=== PATIENT | female | born 1955 | race Caucasian/White ===

== ENCOUNTER 2024-08-06 15:41 | Observation (INO) | payer MEDICARE, OTHER, SELFPAY ==
[2024-08-06] VITALS (11 sets, daily range): BP systolic 124–166; BP diastolic 65–95; BMI 24.5
--- NOTE | 2024-08-06 10:30 | ED.CVA ---
History of Present Illness
General
Chief Complaint: CVA/TIA Symptoms
Time Seen by Provider: 08/06/24 09:52
Onset of Stroke Symptoms
Onset of symptoms known: No
Time pt last seen normal is known: No
History of Present Illness
History of Present Illness:
68-year-old female with history of high cholesterol, asthma, chronic back pain, chronic vascular issues presenting to the emergency department for strokelike symptoms. Patient reports about 3 to 4 days ago she started to have numbness to her left
side of face and left arm. Also notes some increased blurred vision out of the left eye. She went to see an orthopedic doctor today about her chronic back pain who advised that she come to the hospital. Denies any known history of stroke. Denies
any associated weakness. Does report chronic lower back and neck pain denies chest pain or difficulty breathing. Does note chronic pain to the neck and lower back which has been ongoing. Denies abdominal pain or GI symptoms. Denies any recent
fall or trauma. Denies additional acute medical complaints
Phy Exam
Physical Exam
Physical Exam:
General: Well-appearing, no clinical signs of dehydration, nontoxic and in no acute distress
HEENT: protecting airway
Neck: appears supple, no tenderness to the midline cervical spine
CV: Normal heart rate, regular rhythm
Resp: No accessory muscle use, no increased work of breathing, lungs clear to auscultation bilaterally
Abd: No distention
Extremities: No deformities, no swelling
Neuro: alert, no focal neurologic deficit
: deferred
Rectal: deferred
Psych: Normal affect
Skin: Intact
Scores
NIH Stroke Score
Level of Consciousness: 0 - Alert
LOC Questions: 0-Answers both correctly
LOC Commands: 0-Performs both correctly
Best Horizontal Gaze: 0-Normal
Visual Cameron: 0=Normal, no visual loss
Facial Palsy: 0=Normal, symmetrical
Motor - Right Arm: 0=No drift 10 seconds
Motor - Left Arm: 0=No drift 10 seconds
Motor - Right Le-No drift 5 seconds
Motor - Left Le-No drift 5 seconds
Limb Ataxia: 0-Absent
Sensation: 0-Normal
Best Language: 0-No aphasia
Dysarthria: 0-Normal
Extinction and Inattention: 0-No abnormality
Total Score:: 0
Course
Orders/Labs/Results
Orders:
Orders
08/06/24 10:16
CT Head & Neck Angio W/wo IV Urgent
Comment:
Reason For Exam: L-face and arm numbness
08/06/24 10:17
Electrocardiogram (*1) Stat
Reason for Study: Other
Other Reason for Exam: neuro symptoms
EKG- Treatment ONCE
08/06/24 10:24
Comprehensive Metabolic Panel Urgent
PTT Urgent
Prothrombin Time Urgent
08/06/24 10:25
Complete Blood Count/With Diff Urgent
08/06/24 13:06
Aspirin Chewable [Low Strength Aspirin] 81 mg PO NOW STA
Clopidogrel Bisulfate [Plavix] 75 mg PO NOW STA
Abnormal Lab Results
08/06/24 08/06/24
10:24 10:25
MCH 31.4 H pg
(27.0-31.0)
Immature Gran % 0.6 H %
(0-0.5)
Glucose 104 H mg/dl
(70-99)
Total Bilirubin 1.6 H mg/dl
(0.2-1.3)
08/06/24 10:25
08/06/24 10:24
Vital Signs
Initial and Last Documented VS:
Initial Vital Signs
Temp Pulse Resp BP Pulse Ox
97.7 F 68 18 166/90 99
08/06/24 09:23 08/06/24 09:23 08/06/24 09:23 08/06/24 09:23 08/06/24 09:23
Last Documented Vital Signs
Temp Pulse Resp BP Pulse Ox
97.7 F 53 15 131/77 99
08/06/24 09:23 08/06/24 13:00 08/06/24 12:45 08/06/24 13:00 08/06/24 13:00
MDM/Problems Addressed
MDM/Problems Addressed:
68-year-old female with history of asthma, vascular issues, hyperlipidemia presenting for strokelike symptoms for the past 3 to 4 days. Vital signs on arrival are significant for mild hypertension.
On exam patient is resting comfortably, no acute distress or discomfort. She is afebrile, nontoxic. Symptoms described are concerning for neurologic process, TIA versus CVA. Patient reports that she is still having the symptoms, however on exam,
no weakness or sensory deficits. Patient's peripheral cameron are intact. NIH stroke scale of 0. No indication for TNK given duration of symptoms, additionally no acute neurologic findings. Cervical radiculopathy is a consideration, however less
likely in the setting of visual symptoms. For this reason we will obtain laboratory analysis and CT brain imaging.
13:00 - CT and CT angio without acute process. Discussion with neurology, will see and evaluate. Will administer aspirin and Plavix
13:45 - Neurology recommending admission. Will discuss with hospitalist
*EKG
Interpreted by ED Provider?: Yes
EKG Intrepretation Date: 08/06/24
EKG Intrepretation Time: 10:41
Interpretation: normal
Comparison EKG: no comparison EKG present
Heart Rate: 54
Rate: bradycardiac
Rhythm: sinus
[place]: normal axis
Interval: normal interval
QRS Pattern: normal QRS
Ischemia: no ischemia
*Critical Care Note
Total Time (30-74mins, 75-104mins- exclusive of procedures): Not Applicable
ED Attending Note
-
Portions of this chart may have been created with voice recognition software.� Occasional wrong word or��sound alike� substitutions may have occurred due to the inherent limitations of voice recognition software.
Discharge Plan
Departure
Referrals:
Parish Hodge MD [Family Provider] -
Interventions
Interventions:
*Risk Screen - Suicide Last Done: 08/06/24 09:23
*General Assessment Last Done: 08/06/24 09:23
*Neglect/Abuse Screening Last Done: 08/06/24 09:23
*ED- Fall Risk Assessment Last Done: 08/06/24 09:49
*ED COVID-19 Vaccine History Last Done: 08/06/24 09:23
ED- Pulmonary Assessment Last Done: 08/06/24 09:49
ED- Neurological Assessment Last Done: 08/06/24 10:08
ED- Cardiac Assessment Last Done: 08/06/24 10:07
ED Swallowing Screen Last Done: 08/06/24 10:07
Discharge Date and Time
Print Language: LUX[place]
[2024-08-06 10:48] LABS: ALT (SGPT) 20 U/L (0-35); AST (SGOT) 26 U/L (14-36); Albumin 4.1 g/dl (3.5-5.0); Alkaline Phosphatase 54 U/L (38-126); Blood Urea Nitrogen 14 mg/dl (7-17); Calcium 9.4 mg/dl (8.4-10.2); Carbon Dioxide 29 mmol/L (22-30); Chloride 105 mmol/L (98-107); Glucose 104 mg/dl (70-99); Potassium 4.4 mmol/L (3.5-5.1); Sodium 139 mmol/L (135-145); Total Bilirubin 1.6 mg/dl (0.2-1.3); Total Protein 6.9 g/dl (6.3-8.2); eGFR > 60.00
[2024-08-06 10:49] LABS: % Eosinophils 3.4 % (0-6); % Immature Granulocytes 0.6 % (0-0.5); % Lymphocytes 25.6 % (20.5-51.1); % Monocytes 8.5 % (1.7-9.3); % Neutrophils 59.9 % (42.2-75.2); Absolute Basophils 0.1 10^3/uL (0-0.2); Absolute Eosinophils 0.2 10^3/uL (0-0.7); Absolute Lymphocytes 1.3 10^3/uL (1.2-3.4); Absolute Monocytes 0.4 10^3/uL (0.1-0.6); Hematocrit 40.3 % (37.0-47.0); Hemoglobin 13.4 g/dL (12.0-16.0); Mean Corp Hgb Conc. 33.3 g/dL (33.0-37.0); Mean Corpuscular Hgb 31.4 pg (27.0-31.0); Mean Corpuscular Volume 94.4 fL (81.0-99.0); Mean Platelet Volume 9.3 fL (7.4-10.4); Nucleated Red Blood Cells % 0 %; Platelet Count 251 10^3/uL (130-400); Red Blood Cell Count 4.27 10^6/uL (4.20-5.40); Red Cell Dist. Width 13.2 % (11.5-14.5)
[2024-08-06 10:52] LABS: INR 0.97; PT 13.3 Sec (11.4-14.6)
[2024-08-06 10:53] LABS: APTT 26.6 Sec (23.4-35.0)
--- NOTE | 2024-08-06 13:01 | CON.NEURO ---
Consultation
Order
Date of Consultation: 08/06/24
Requesting Provider: Bria Mathew DO
Reason for Consult: Numbness
Neurology Consultation Note.
HPI: This is a 68-year-old RH woman who presented to [facility] on 08/06/2024 with sensory symptoms. According to the patient she developed an acute right face and arm paresthesias with associated retro-orbital left eye pain and
blurred vision on 08/03/2024. No reports of associated headache, motor deficits, vertigo, photo or phonophobia, nausea, change in speech or language. The patient has history of migraine with aura. She also has history of chronic lower back pain
with left L5 radiculopathy that she was seen by Ortho prior to ER presentation.
The patient has a history of back problems and has been taking tizanidine, a muscle relaxer, which she has recently tapered from 4 mg to 2 mg. She notes an increase in blood pressure and cholesterol levels since starting this medication.
Ms. Rowe states that she has a history of atrial fibrillation and supraventricular tachycardia.The patient takes 81 mg of aspirin daily.
ER VS: 166/90, 68�52, afebrile.
Labs: Glucose�104, bili 1.6, normal sodium, creatinine,
CT head wo contrast�no acute abnormalities
CTA head/neck�no hemodynamically significant stenosis
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
PSH: CHELY/BSO, adenoidectomy, inguinal hernia repair, tonsillectomy, laparoscopic cholecystectomy
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
FH: Mother from stroke in her 80s
All: Doxycycline, montelukast, steroid
ROS: Constitutional: Negative. Negative for chills, fever and unexpected weight change.
HENT: Negative for ear pain, hearing loss, tinnitus and trouble swallowing.
Eyes: Positive for blurred vision on the left
Respiratory: Negative for cough, choking and shortness of breath.
Cardiovascular: Negative for chest pain, palpitations and leg swelling.
Gastrointestinal: Negative for abdominal pain and vomiting.
Endocrine: Negative. Negative for cold intolerance.
Genitourinary: Positive for chronic urinary incontinence
Musculoskeletal: Positive for chronic lower back pain
Skin: Negative for rash.
Allergic/Immunologic: Negative. Negative for immunocompromised state.
Neurological: Positive for left face and arm paresthesias
Psychiatric/Behavioral: Negative for behavioral problems, confusion and hallucinations.
General: Well developed. In no acute distress.
Cardio: Regular rate and rhythm without murmur. Extremities are without cyanosis or edema.
Neuro:
Mental Status: Alert, oriented to person, place, and date. Tangential. Normal attention and recall. Good fund of knowledge. Follows complex requests across the midline. Comprehension, naming, and repetition intact. Immediate 3/3.
Cranial Nerves: Pupils are equally round and reactive to light. EOMs full. Visual cameron full to confrontation. No ptosis. No nystagmus. V1-V3 intact to light touch and pinprick bilaterally, symmetric. Face symmetric. Normal hearing AU. The
palate elevated well. SCMs and traps 5/5. Tongue midline. No dysarthria.
Motor: Normal bulk and tone. No pronator or arm drift. Strength 5/5 throughout. No clonus.
Reflexes: 2+ throughout the upper extremities and 3+ knees. 2/2 in AJs. Plantar responses flexor bilaterally. Negative Rae's bilaterally
Sensory: Normal vibration at the ankles
Coordination: No dysmetria or tremor.
Gait: deferred
Assessment and Plan:
I. Probable migraine with aura, rule out thalamic infarct
II. HTN, history of A-fib
III. Chronic left L5 radiculopathy
-Continue Telemetry monitoring
-Continue aspirin 81 mg once a day
-Brain MRI without raimundo
-Further workup will depend on brain MRI results
-DVT prophylaxis.
-Case was discussed with patient's present at bedside.
I personally reviewed all radiology and labs along with past medical records pertinent to current medical problems. Total time spent in patient care is 60 minutes.
Thank you for allowing us to participate in the care of this patient. We will continue to follow. Please do not hesitate to contact us with any questions or concerns.
Subjective/Objective
Subjective Data
Date of Service: August 06, 2024
Objective Data
Vital Signs
Temp Pulse Resp BP Pulse Ox
36.5 C 52 14 130/72 100
08/06/24 09:23 08/06/24 12:00 08/06/24 11:45 08/06/24 12:00 08/06/24 12:00
Lab Results
08/06/24 10:25
08/06/24 10:24
PT 13.3 Sec (11.4-14.6) 08/06/24 10:24
INR 0.97 08/06/24 10:24
APTT 26.6 Sec (23.4-35.0) 08/06/24 10:24
Sodium 139 mmol/L (135-145) 08/06/24 10:24
Potassium 4.4 mmol/L (3.5-5.1) 08/06/24 10:24
BUN 14 mg/dl (7-17) 08/06/24 10:24
Glucose 104 mg/dl (70-99) H 08/06/24 10:24
Calcium 9.4 mg/dl (8.4-10.2) 08/06/24 10:24
Patient Allergies
doxycycline Allergy (Verified 08/06/24 09:35)
Itching
montelukast [From Singulair] Allergy (Verified 08/06/24 09:35)
Unknown
steroids Allergy (Uncoded 08/06/24 09:35)
Unknown
[2024-08-06] MEDS: LOW STRENGTH ASPIRIN 81 MG PO (13:13)
[2024-08-06] MEDS: PLAVIX 75 MG PO (13:14)
--- NOTE | 2024-08-06 13:58 | HPS.HSE ---
Family Physician
-
Family Physician: Parish Hodge
Chief Complaint
-
Left-sided facial numbness, left eye blurry vision 3 to 4 days
History of Present Illness
68-year-old female complaining of 3 to 4 days of left-sided face and left arm numbness that feels like a tourniquet on the left side of her face and entire left arm along with increased blurred vision from her left eye, but can still read fine print
with her glasses on. She reports history of migraine auras but no headache. Prior to coming to the ER for evaluation she went to her orthopedic doctor today in regards to her chronic back pain he advised her to come for evaluation. Patient
reports chronic lower back and neck pain for which has been ongoing and she follows with orthopedics and has been on Zanaflex since 07/18/2024. She states initially she was on Zanaflex 4 times a day for 2 weeks and the pain in her neck and back were
gone but she wanted to feel some of the pain so she decreased it to 3 times a day starting this past week then to twice a day 2 days ago. She reports reading the pamphlet that stated it can cause numbness but she plans on continuing to take the
Zanaflex. She had CT head and CTA that was normal in the ER. She was evaluated by neurology who recommended admission and starting aspirin and Plavix, brain MRI. She denies headache, fever, chills, chest pain, palpitations, cough, shortness of
breath, abdominal pain, nausea, vomiting, diarrhea, urinary symptoms she has past medical history of HLD, asthma, chronic neck and back pain, A-fib(patient told by cardiology does not have this), SVT, abdominal aortic aneurysm, pulmonary nodule,
hiatal hernia, CKD, stress incontinence urine hypothyroidism, glaucoma at age 39 had laser treatment both eyes, anemia, rheumatoid arthritis, MAO-A gene, chronic Bekah-Amin, scoliosis, left renal cyst, vitiligo, lupus, popliteal aneurysm
Medical History
Past Medical History
Past Medical History: Reports Other
Additional Past Medical History:
HLD
rheumatoid arthritis
Reported lupus
asthma
chronic neck and back pain
Hypothyroidism
CKD reported per patient
A-fib
SVT
abdominal aortic aneurysm
Pulmonary nodule
hiatal hernia
Urinary stress incontinence
Glaucoma
anemia
MAO-A gene
chronic Bekah-Amin
scoliosis
left renal cyst
vitiligo
popliteal aneurysm
Past Surgical History: Reports Other
Additional Past Surgical History:
Umbilical hernia repair age 18 months
Tonsillectomy adenoidectomy age 4
Abdominal surgery with oophorectomy age 13
Appendectomy age 13
Abdominal cyst removal
D&C
Scar tissue removal from abdomen
Hysterectomy
Cholecystectomy
Social History
Tobacco: Non-smoker
Alcohol: Daily (8 ounces of wine Saturday through , Saturday and Saturday 3 ounces of whiskey then 4 ounces of wine with dinner)
Drug: None
Personal:
Living: With Family ()
Employment: Retired
Family History
Family History: Other (No family history of stroke)
Allergies / Home Medications
Allergies reflects when Allergies were last updated in [facility].
Home Medications with original date entered in [facility]
Allergy/Medication List:
Allergies
Allergy/AdvReac Type Severity Reaction Status Date / Time
doxycycline Allergy Itching Verified 08/06/24 09:35
montelukast [From Singulair] Allergy Unknown Verified 08/06/24 09:35
steroids Allergy Unknown Uncoded 08/06/24 09:35
Home Medications
albuterol sulfate 90 mcg/actuation aerosol inhaler 2 puff inhalation 6XD PRN sob,wheezing 08/06/24
aspirin 81 mg tablet,delayed release 81 mg PO DAILY 08/06/24
cholecalciferol (vitamin D3) 25 mcg (1,000 unit) tablet (Vitamin D3) 25 mcg PO DAILY 08/06/24
ibuprofen 200 mg tablet 400 mg PO HS 08/06/24
levothyroxine 112 mcg tablet (Synthroid) 56 mcg PO WE 08/06/24
levothyroxine 112 mcg tablet (Synthroid) 112 mcg PO SUMOTUTHFRSA 08/06/24
lorazepam 0.5 mg tablet 0.5 mg PO Q6HPRN PRN anxiety 08/06/24
lorazepam 0.5 mg tablet 1 mg PO HS PRN sleep 08/06/24
magnesium oxide 400 mg PO DAILY 08/06/24
pantoprazole 40 mg tablet,delayed release 40 mg PO DAILY 08/06/24
vit no.95-ferrous fumarate 28 mg-folic acid 800 mcg tablet () 2 tab PO DAILY 08/06/24
tizanidine 2 mg tablet 2 mg PO DAILY 08/06/24
valacyclovir 1 gram tablet 2,000 mg PO [id number] PRN cold sores 08/06/24
Review of Systems
-
History Source: Patient and Family (Patient's )
A 12 point ROS was completed and negative except as noted: Yes
Constitutional: Denies Fever, Fatigue or Chills
EENT: Reports Other (Left facial numbness, left I reported blurred vision); Denies Sore Throat or Runny Nose
Respiratory: Denies Cough, Hemoptysis or Trouble Breathing
Cardiac: Denies Chest Pain, Diaphoresis, Palpitations or Syncope
Abdomen/GI: Denies Abdominal Pain, Nausea, Vomiting, Diarrhea, Constipated, Bloody Stools or Black Stools
: Denies Dysuria, Frequency, Flank Pain, Incontinence or Difficulty Voiding
Musculoskeletal: Reports No Symptoms; Denies Joint Pain or Muscle Stiffness
Skin: Denies Itching or Rash
Neurological: Denies Dizzy, Headache or Weakness
Endocrine: Reports No Symptoms
Hematologic/Lymphatic: Reports No Symptoms
Psych: Reports Calm
Physical Exam
Vital Signs
Vital Signs
Temp Pulse Resp BP Pulse Ox
97.7 F 53 17 131/77 99
08/06/24 09:23 08/06/24 13:45 08/06/24 13:45 08/06/24 13:00 08/06/24 13:45
Physical Exam
General: Comfortable and Conversant; No Fever or Chills
HEENT: NormoCephalic, Anicteric, Moist mucous membranes, PERRLA (EOMs intact no nystagmus), [place] Conjunctivae, No Ptosis and Other (No sensation difference between left and right side of face to touch)
Respiratory: Clear; No Wheezes, Rales or Rhonchi
Cardiac: S1/S2 and Bradycardia (Sinus); No Murmur, Rub, Gallop or Peripheral Edema
Breast: Deferred by me
GI: Soft, Non Tender, Non Distended, Normal Bowel Sounds and No Hepatosplenomegaly
Genito-urinary: Deferred by me
Musculoskeletal: No Clubbing, No Cyanosis, No Edema and Other (No joint swelling no herbedens or Cali nodes, no butterfly rash to face)
Skin: Warm and Dry; No Rash or Jaundice
Neuro: AO x 3, No Motor Deficits, Nonfocal/grossly intact, Cranial Nerves Intact, No Sensory Deficits and DTR's Intact & Symmetrical; No Slurred Speech, Facial Droop, Tremors or Sedated
Psych: Calm
Laboratory Results
-
08/06/24 10:25
08/06/24 10:24
Laboratory Results
PT 13.3 Sec (11.4-14.6) 08/06/24 10:24
INR 0.97 08/06/24 10:24
APTT 26.6 Sec (23.4-35.0) 08/06/24 10:24
Total Bilirubin 1.6 mg/dl (0.2-1.3) H 08/06/24 10:24
AST 26 U/L (14-36) 08/06/24 10:24
ALT 20 U/L (0-35) 08/06/24 10:24
Alkaline Phosphatase 54 U/L (38-126) 08/06/24 10:24
Impression/Plan
-
Impression/plan:
Observation telemetry
#Left facial, arm numbness, left eye blurred vision concern for TIA/CVA Probable migraine with aura rule out thalamic infarct
History of migraine auras (moving blurry lightning bolts) but never gets actual headache
#Brain MRI without gadolinium
--CT head/CTA normal
-Consult neurology was seen at bedside
-Check MRI brain without gadolinium
-Aspirin 81 mg now and daily
-Plavix 75 mg now and daily
-Check lipid profile, HgbA1c, B12 level
PT/OT/case management consult
EKG sinus bradycardia 54 bpm, QTc 419 MS otherwise normal
# Hypothyroidism
-Continue levothyroxine 112 mcg p.o. daily and 56 mcg p.o. Wednesdays only
#Anxiety
-Continue lorazepam 1 mg at at bedtime as needed and 0.5 mg every 6 hours as needed
#Daily alcohol use
Drinks 1 glass 8 ounce wine Saturday through then 3 ounce whiskey at lunch and 4 ounce red wine at night Saturday
-Check B12 level
#GERD
#Hiatal hernia
-Continue Protonix 40 mg daily
#Reported lupus not formally diagnosed
#Chronic neck and back pain
-Follows with orthopedics
-Continue continue Zanaflex twice daily
#HLD
-Check lipid profile
#CKD-reported per patient however not appreciated on labs
stress incontinence urine
Creatinine 0.8, GFR> 60
#Asthma
-Continue albuterol inhaler as needed
#A-fib per patient reported states has followed with cardiology who has told her she does not have A-fib however she believes she does via her wrist monitor and she treats it with cold showers
#SVT Hx-since teenager patient treats also with cold showers
#Abdominal aortic aneurysm
Other PMH:
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
Pulmonary nodule
Glaucoma at age 39 status post laser treatment completely resolved
Anemia
Rheumatoid arthritis-not formally diagnosed but believes she has
MAO-A gene
Chronic Bekah-Amin
Scoliosis
Left renal cyst
Vitiligo
popliteal aneurysm
DVT prophylaxis
SCDs
Full code
--- NOTE | 2024-08-06 14:49 | W.PN.UPDATE ---
Update Note
Progress Note Update
This note serves as an addendum to the H&P by windows systems engineer MEGAN Bianca WHITFIELD
HPI:
68F HX Has chronic back and neck pain, no prior visit to seen at ER :
- sent here for Lt sided paraesthesia by OP Ortho
- reports 3-4 days of L-face and L-arm numbness with L-blurred visions
- went to ortho before ER for chronic back and neck pain,
PHX: see below
Vital Signs
Temp Pulse Resp BP Pulse Ox
97.7 F 53 17 131/77 99
08/06/24 09:23 08/06/24 13:45 08/06/24 13:45 08/06/24 13:00 08/06/24 13:45
PE
Gen: not toxic
HEENT: normal speech and language, symmetric face,
Neck: supple. No JVD
Lungs:CTA
Cor: RRR S1 S2
Abdomen: benign abdomen
NURSE MIDWIFE:
Peripheral visual camerno are intact
No neurologic findings on exam, no sensory deficits,
MS:no edema
Psych: fights of thoughts, stable mood, no psychosis may be delusions
Laboratory Tests
08/06/24 08/06/24
10:24 10:25
WBC 5.0
Hgb 13.4
Plt Count 251
INR 0.97
eGFR > 60.00
Glucose 104 H
Total Bilirubin 1.6 H
EKG
SINUS BRADYCARDIA
OTHERWISE NORMAL ECG
NO PREVIOUS ECGS AVAILABLE
CT Head & Neck Angio W/wo IV
CT Brain: No acute intracranial process. Specifically, no evidence of acute hemorrhage.
CTA Head: No significant arterial stenosis. No aneurysm.
CTA Neck: No significant arterial stenosis. There is grade 1 anterolisthesis of C3 on C4 and C6 on C7 with moderate/severe intervertebral disc space narrowing of C4-C5, C5-C6 and C6-C7.
ASSESSMENT & PLAN
Acute Lt sided paraesthesia ( Lt entire Face, entire Lt arm , Lt eye blurred vision)
- NEG CT/CTA H & N
- evaluated by Neuro at ER
- agree with DAPL (ASA/Plavix)
- MRI Brain without
Hypothyroid
- on BLOCK OUT MACHINE OPERATOR LT4
Insomnia/ Anxiety
- on BLOCK OUT MACHINE OPERATOR Lorazepam 1mg HS PRN and 0.5mg q6h PRN
HLD on diet control
DVT Px: SCD
Full code
Obs TLM
[2024-08-06 17:07] LABS: Vitamin B12 477 pg/ml (239-931)
[2024-08-07] MEDS: TYLENOL 650 MG PO (01:17)
[2024-08-07 03:12] VITALS: BP 125/72
[2024-08-07] MEDS: SYNTHROID 112 MCG PO (05:27)
[2024-08-07 07:15] VITALS: BP 115/71
[2024-08-07] MEDS: ASPIR LOW (ENTERIC COATED) 81 MG PO (07:50)
[2024-08-07] MEDS: PLAVIX 75 MG PO (07:50)
[2024-08-07] MEDS: PROTONIX 40 MG PO (07:50)
[2024-08-07 08:28] LABS: % Basophils 1.4 % (0-2); % Eosinophils 3.4 % (0-6); % Immature Granulocytes 0.5 % (0-0.5); % Lymphocytes 22.3 % (20.5-51.1); % Monocytes 7.7 % (1.7-9.3); % Neutrophils 64.7 % (42.2-75.2); Absolute Basophils 0.1 10^3/uL (0-0.2); Absolute Eosinophils 0.2 10^3/uL (0-0.7); Absolute Lymphocytes 1.5 10^3/uL (1.2-3.4); Absolute Monocytes 0.5 10^3/uL (0.1-0.6); Absolute Neutrophils 4.2 10^3/uL (1.4-6.5); Hematocrit 40.8 % (37.0-47.0); Hemoglobin 13.7 g/dL (12.0-16.0); Mean Corp Hgb Conc. 33.6 g/dL (33.0-37.0); Mean Corpuscular Hgb 30.9 pg (27.0-31.0); Mean Corpuscular Volume 92.1 fL (81.0-99.0); Mean Platelet Volume 9.4 fL (7.4-10.4); Nucleated Red Blood Cells % 0 %; Platelet Count 264 10^3/uL (130-400); Red Blood Cell Count 4.43 10^6/uL (4.20-5.40); Red Cell Dist. Width 13.2 % (11.5-14.5); White Blood Cell Count 6.5 10^3/uL (4.8-10.8)
[2024-08-07 09:15] LABS: Blood Urea Nitrogen 12 mg/dl (7-17); Calcium 9.3 mg/dl (8.4-10.2); Carbon Dioxide 27 mmol/L (22-30); Chloride 105 mmol/L (98-107); Estimated Creatinine Clearance 49 ml/min; Glucose 97 mg/dl (70-99); HDL Cholesterol 87 mg/dl; LDL Cholesterol, Calculated 155 mg/dl; Potassium 4.1 mmol/L (3.5-5.1); Sodium 142 mmol/L (135-145); Total Cholesterol 253 mg/dl (50-199); Triglyceride 57 mg/dl (10-149); Very Low Density Lipoprotein 11 mg/dl (0-30); eGFR > 60.00
[2024-08-07 11:15] VITALS: BP 156/84
--- NOTE | 2024-08-07 11:15 | W.PN.NEURO.1 ---
Today's Communication / Plan
-
.
Subjective/Objective
Subjective Data
Date of Service: August 07, 2024
Neurology follow-up note
Ms. Rowe continues to have left-sided sensory symptoms. No reports of headaches.
The patient reports experiencing chronic intermittent visual phenomena described as 'visual snow,' which she characterizes as white smoke. She reportedly was seen by neuro ophthalmology in the past. She has observed this approximately 5 times in
her life, noting that it moves in a clockwise direction and is not always peripheral. The patient denies associated headaches with these episodes.
The patient also describes experiencing migraine auras without subsequent headaches. During these episodes, she experiences visual symptoms jack to a 'split screen' effect, which affects her balance. These episodes can last for a couple of hours but
are not accompanied by pain. The patient denies any speech difficulties during these events.
The patient mentions cognitive concerns. The patient states that she clearly recalls [place] memories, including being 18 months old in a metal crib and having a peanut removed from her navel at that age. She insists on remembering the
detailed of the above hospitalization.
No reports of auditory hallucinations.
Brain MRI wo [facility](08/07/2024) Small 4.8 mm focus of signal abnormality in the cortical paz matter of the superior left parietal lobe(chronic hemorrhagic infarct vs a cerebral venous cavernous malformation or developmental venous anomaly vs amyloid
angiopathy. Minimal white matter leukoaraiosis in the frontal and parietal lobes. Mild diffuse cerebral and cerebellar volume loss.
LDL 155
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
PSH: CHELY/BSO, adenoidectomy, inguinal hernia repair, tonsillectomy, laparoscopic cholecystectomy
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
FH: Mother from stroke in her 80s
All: Doxycycline, montelukast, steroid
ROS: Constitutional: Negative. Negative for chills, fever and unexpected weight change.
HENT: Negative for ear pain, hearing loss, tinnitus and trouble swallowing.
Eyes: Positive for blurred vision on the left
Respiratory: Negative for cough, choking and shortness of breath.
Cardiovascular: Negative for chest pain, palpitations and leg swelling.
Gastrointestinal: Negative for abdominal pain and vomiting.
Endocrine: Negative. Negative for cold intolerance.
Genitourinary: Positive for chronic urinary incontinence
Musculoskeletal: Positive for chronic lower back pain
Skin: Negative for rash.
Allergic/Immunologic: Negative. Negative for immunocompromised state.
Neurological: Positive for left face and arm paresthesias
Psychiatric/Behavioral: Negative for behavioral problems, confusion and hallucinations.
General: Well developed. In no acute distress.
Cardio: Regular rate and rhythm without murmur. Extremities are without cyanosis or edema.
Neuro:
Mental Status: Alert, oriented to person, place, and date. Non-linear thought pattern. Follows complex requests across the midline. Comprehension, naming, and repetition intact.
Cranial Nerves: Pupils are equally round and reactive to light. EOMs full. Visual cameron full to confrontation. No ptosis. No nystagmus. V1-V3 intact to light touch and pinprick bilaterally, symmetric. Face symmetric. Normal hearing AU. The
palate elevated well. SCMs and traps 5/5. Tongue midline. No dysarthria.
Motor: Normal bulk and tone. No pronator or arm drift. Strength 5/5 throughout. No clonus.
Coordination: No tremors myoclonic movement
Gait: deferred
Assessment and Plan:
I. Chronic superior left parietal lobe microhemorrhage
II. HTN, history of A-fib
III. Chronic left L5 radiculopathy
IV. Cavum septum pellucidum et vergae.
V. Delusional disorder ?
-Continue Telemetry monitoring
-Continue aspirin 81 mg once a day
-Please clarify history of A-fib
-Outpatient neuropsychological evaluation
-Psychiatry consult (can be done as outpatient)
-Outpatient neurology follow-up
-Please recall neurology services any questions or concerns
I personally reviewed all radiology and labs along with past medical records pertinent to current medical problems. Total time spent in patient care is 35 minutes.
Thank you for allowing us to participate in the care of this patient. Please do not hesitate to contact us with any questions or concerns.
Objective Data
Vital Signs
Temp Pulse Resp BP Pulse Ox
36.8 C 51 16 115/71 100
08/07/24 07:15 08/07/24 07:15 08/07/24 07:15 08/07/24 07:15 08/07/24 10:44
Lab Results
08/07/24 07:21
08/07/24 07:21
PT 13.3 Sec (11.4-14.6) 08/06/24 10:24
INR 0.97 08/06/24 10:24
APTT 26.6 Sec (23.4-35.0) 08/06/24 10:24
Sodium 142 mmol/L (135-145) 08/07/24 07:21
Potassium 4.1 mmol/L (3.5-5.1) 08/07/24 07:21
BUN 12 mg/dl (7-17) 08/07/24 07:21
Glucose 97 mg/dl (70-99) 08/07/24 07:21
Calcium 9.3 mg/dl (8.4-10.2) 08/07/24 07:21
LDL Cholesterol, Calc 155 mg/dl 08/07/24 07:21
Vitamin B12 477 pg/ml (239-931) 08/06/24 10:24
Patient Allergies
doxycycline Allergy (Verified 08/06/24 09:35)
Itching
montelukast [From Singulair] Allergy (Verified 08/06/24 09:35)
Unknown
steroids Allergy (Uncoded 08/06/24 09:35)
Unknown
Vital Signs and Labs
-
Vital Signs and Labs:
Vital Signs
Temp Pulse Resp BP Pulse Ox
36.8 C 51 16 115/71 100
08/07/24 07:15 08/07/24 07:15 08/07/24 07:15 08/07/24 07:15 08/07/24 10:44
Lab Results
08/07/24 07:21
08/07/24 07:21
PT 13.3 Sec (11.4-14.6) 08/06/24 10:24
INR 0.97 08/06/24 10:24
APTT 26.6 Sec (23.4-35.0) 08/06/24 10:24
Sodium 142 mmol/L (135-145) 08/07/24 07:21
Potassium 4.1 mmol/L (3.5-5.1) 08/07/24 07:21
BUN 12 mg/dl (7-17) 08/07/24 07:21
Glucose 97 mg/dl (70-99) 08/07/24 07:21
Calcium 9.3 mg/dl (8.4-10.2) 08/07/24 07:21
LDL Cholesterol, Calc 155 mg/dl 08/07/24 07:21
Vitamin B12 477 pg/ml (239-931) 08/06/24 10:24
Medications
-
Medications:
Generic Name Dose Route Start Last Admin
Trade Name Freq PRN Reason Stop Dose Admin
Acetaminophen 650 mg 08/06/24 17:11 08/07/24 01:17
Acetaminophen 325 Mg Tablet PO 09/03/24 17:10 650 mg
Q4HPRN PRN Administration
mild pain/LIMA/temp> 100.4F
Albuterol 2 puff 08/06/24 17:11
Albuterol Hfa [90 Mcg/Dose] Inhaler INH
R Q4HPRN PRN
sob,wheezing
Protocol
Aspirin 81 mg 08/07/24 08:00 08/07/24 07:50
Aspirin 81 Mg (Enteric Coated) Tablet PO 09/04/24 07:59 81 mg
DAILY VANDANA Administration
Cholecalciferol 25 mcg 08/07/24 08:00 08/07/24 07:52
Cholecalciferol (Vitamin D3) 25 Mcg Tablet (1,000 Units) PO 09/04/24 07:59 Not Given
DAILY VANDANA
Clopidogrel Bisulfate 75 mg 08/07/24 08:00 08/07/24 07:50
Clopidogrel 75 Mg Tablet PO 09/04/24 07:59 75 mg
DAILY VANDANA Administration
Levothyroxine Sodium 112 mcg 08/07/24 06:00 08/07/24 05:27
Levothyroxine 112 Mcg Tablet PO 09/04/24 05:59 112 mcg
SuMoTuThFrSa@0600 VANDANA Administration
Levothyroxine Sodium 56 mcg 08/12/24 06:00
Levothyroxine 112 Mcg Tablet PO 09/09/24 05:59
WE@0600 VANDANA
Lorazepam 0.5 mg 08/06/24 17:11
Lorazepam 0.5 Mg Tablet PO 09/03/24 17:10
Q6HPRN PRN
anxiety
Lorazepam 1 mg 08/06/24 22:00
Lorazepam 1 Mg Tablet PO 09/03/24 21:59
HSPRN PRN
sleep
Magnesium 84 mg 08/07/24 08:00 08/07/24 07:52
Magnesium Lactate 84 Mg Tablet PO 09/04/24 07:59 Not Given
DAILY VANDANA
Pantoprazole Sodium 40 mg 08/07/24 08:00 08/07/24 07:50
Pantoprazole 40 Mg Delayed Release Tablet PO 09/04/24 07:59 40 mg
DAILY VANDANA Administration
Prenat Multivit/[place]/Iron/Folic Ac 2 tablet 08/07/24 08:00 08/07/24 07:52
Multiple Vitamin/Minerals With Iron Tablet PO 09/04/24 07:59 Not Given
DAILY VANDANA
Sodium Chloride 0 flush 08/06/24 18:00
Sodium Chloride 0.9% (Flush) Syringe IV 09/03/24 17:59
PER PROTOCOL VANDANA
Tizanidine HCl 2 mg 08/07/24 08:00 08/07/24 07:56
Tizanidine 2 Mg Tablet PO 09/04/24 07:59 Not Given
DAILY VANDANA
Home Medications
-
Home Medications
albuterol sulfate 90 mcg/actuation aerosol inhaler 2 puff inhalation R Q6HPRN PRN sob,wheezing 08/06/24
aspirin 81 mg tablet,delayed release 81 mg PO DAILY Blood Clot Prevention/Tx 08/06/24
cholecalciferol (vitamin D3) 25 mcg (1,000 unit) tablet (Vitamin D3) 25 mcg PO DAILY Supplement 08/06/24
ibuprofen 200 mg tablet 400 mg PO BIDPRN PRN mild pain 08/06/24
levothyroxine 112 mcg tablet (Synthroid) 56 mcg PO WE Thyroid 08/06/24
levothyroxine 112 mcg tablet (Synthroid) 112 mcg PO SUMOTUTHFRSA Thyroid 08/06/24
lorazepam 0.5 mg tablet 0.5 mg PO BIDPRN PRN anxiety 08/06/24
lorazepam 0.5 mg tablet 1 mg PO HS Mental Health/Anxiety 08/06/24
magnesium oxide 400 mg PO DAILY Supplement 08/06/24
melatonin 10 mg tablet 10 mg PO HS Sleep 08/06/24
pantoprazole 40 mg tablet,delayed release 40 mg PO DAILY Gastrointestinal Issue 08/06/24
vit no.95-ferrous fumarate 28 mg-folic acid 800 mcg tablet () 1 tab PO DAILY Supplement 08/06/24
tizanidine 2 mg tablet 2 mg PO DAILY Muscle Spasms 08/06/24
valacyclovir 1 gram tablet 2,000 mg PO [id number] PRN cold sores 08/06/24
[2024-08-07 12:02] VITALS: BP 145/91; PULSE 64; O2SAT 95
--- NOTE | 2024-08-07 13:07 | VNURNOTE ---
Home health liaison met with patient and spouse to discuss [facility] services. At this time patient is back to her baseline and does not have a [place] [facility] facility or PT need. Patient and spouse in agreement. Patient aware to continue with physician
follow-up appointments outpatient. manager sql notified that patient does not need [facility] services
--- NOTE | 2024-08-07 13:21 | CM ---
Patient met at bedside with Gen
MURO form explained & signed
IA completed
Lives with in bi-level home, 2 steps to enter, flight to bedroom
PLOF: Independent
Denies DME
Denies HH, has had outpatient PT in past
PT eval no needs
PCP: Parish Hodge
Pharmacy: [facility]
PLAN: Home, no needs
to transport
--- NOTE | 2024-08-07 14:27 | W.PN.HOSP.TC ---
Today's Communication/Plan
-
Assessment / Plan
Assessment / Plan
General: No Apparent Distress, Comfortable and Conversant
HEENT: NormoCephalic, Moist mucous membranes, Atraumatic
Respiratory: Clear and Non Labored Respirations
Cardiac: S1/S2 and Regular Rhythm; No Rub or Gallop
GI: Soft, Non Tender, Non Distended and Normal Bowel Sounds
Musculoskeletal: No Edema, no deformity
: NO Mehta
Neuro: Awake, Alert, AO x 3, no focal motor deficits, resolving paresthesias left face and left upper extremity
Psych: Calm and Intact Judgment/Insight
Ms. 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
extremity numbness without weakness. Labs and vital signs were unremarkable. Her EKG was unremarkable other than mild sinus bradycardia with a heart rate of 54 which she reports is a normal rate for. CT imaging of her head neck showed cervical
degenerative disc disease but no acute intracranial abnormalities. She was admitted for further evaluation and management.
Paresthesia:
-Involving left face and left arm
-CT angiography of head and neck shows degenerative disc disease in her cervical spine but no intracranial or vascular abnormality
-MRI brain pending
-Neurology following, will follow-up after MRI
-For now continuing aspirin and Plavix
Daily alcohol use:
-B12 within normal limits
-Daily thiamine and folate
CODE STATUS: Full code
Anticipated Discharge: Within 24 hours
Subjective/Interval History
-
Date of Service: August 07, 2024
Patient was seen and examined at bedside this morning. Has resolving left facial and left arm paresthesias. Awaiting MRI brain and neurology evaluation. Feeling generally well currently.
Objective Data
-
Labs:
Laboratory Results
08/07/24
07:21
WBC 6.5
Hgb 13.7
Hct 40.8
Plt Count 264
Sodium 142
Potassium 4.1
Chloride 105
Carbon Dioxide 27
BUN 12
Creatinine 0.9
Glucose 97
Calcium 9.3
Vital Signs:
Vital Signs
Temp Pulse Resp BP Pulse Ox
97.5 F 63 16 156/84 100
08/07/24 11:15 08/07/24 11:15 08/07/24 11:15 08/07/24 11:15 08/07/24 11:15
Review of Systems
-
History Source: Patient
All other systems: Reviewed and negative
Neuro: Reports Other (Mild left facial and left arm paresthesia)
Physical Exam
-
General: No Apparent Distress
--- NOTE | 2024-08-07 15:16 | W.DCSUMMARY ---
Discharge Summary
Discharge Data
Date of Admission: 08/06/24
Date of Discharge: 08/07/24
-
Pending Results: No
Hospital Course
Ms. 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
extremity numbness without weakness. Labs and vital signs were unremarkable. Her EKG was unremarkable other than mild sinus bradycardia with a heart rate of 54 which she reports is a normal rate for. CT imaging of her head neck showed cervical
degenerative disc disease but no acute intracranial abnormalities. She was admitted for further evaluation and management.
MRI showed no acute abnormalities, but does show chronic superior left parietal lobe microhemorrhage and minimal white matter leukoaraiosis involving frontal and parietal lobes with mild diffuse cerebral and cerebellar volume loss. Neurology
recommends continuing low-dose aspirin and outpatient neuropsychologic evaluation. No need to continue Plavix. She will also need outpatient neurology and psychiatric follow-up. She will be discharged on daily thiamine and folate considering her
daily alcohol use. She will need ongoing follow-up for her degenerative disc disease. She is follow-up closely with her primary care physician after hospital discharge.
General: No Apparent Distress, Comfortable and Conversant
HEENT: NormoCephalic, Moist mucous membranes, Atraumatic
Respiratory: Clear and Non Labored Respirations
Cardiac: S1/S2 and Regular Rhythm; No Rub or Gallop
GI: Soft, Non Tender, Non Distended and Normal Bowel Sounds
Musculoskeletal: No Edema, no deformity
: NO Mehta
Neuro: Awake, Alert, AO x 3, no focal motor deficits, resolving paresthesias left face and left upper extremity
Psych: Calm and Intact Judgment/Insight
Discharge Plan
-
Patient Disposition: Home (Routine Discharge)
Discharge Diagnosis/Procedures: Left facial and arm paresthesia
Diet: No restrictions
Activity: As tolerated
Activity Restrictions/Additional Instructions:
Ms. 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
extremity numbness without weakness. Labs and vital signs were unremarkable. Her EKG was unremarkable other than mild sinus bradycardia with a heart rate of 54 which she reports is a normal rate for. CT imaging of her head neck showed cervical
degenerative disc disease but no acute intracranial abnormalities. She was admitted for further evaluation and management.
MRI showed no acute abnormalities, but does show chronic superior left parietal lobe microhemorrhage and minimal white matter leukoaraiosis involving frontal and parietal lobes with mild diffuse cerebral and cerebellar volume loss. Neurology
recommends continuing low-dose aspirin and outpatient neuropsychologic evaluation. No need to continue Plavix. She will also need outpatient neurology and psychiatric follow-up. She will be discharged on daily thiamine and folate considering her
daily alcohol use. She will need ongoing follow-up for her degenerative disc disease. She is follow-up closely with her primary care physician after hospital discharge.
Referrals:
Franci Castillo MD [Active] -
Parish Hodge MD [Family Provider] -
Prescriptions:
New
thiamine mononitrate (vit B1) 100 mg Tablet
100 mg PO DAILY Qty: 30 0RF
Continued
levothyroxine [Synthroid] 112 mcg Tablet
112 mcg PO SUMOTUTHFRSA
tizanidine 2 mg Tablet
2 mg PO DAILY
valacyclovir 1 gram Tablet
2,000 mg PO [id number] PRN (Reason: cold sores)
aspirin 81 mg Tablet,Delayed Release (Dr/Ec)
81 mg PO DAILY
lorazepam 0.5 mg Tablet
1 mg PO HS
lorazepam 0.5 mg Tablet
0.5 mg PO BIDPRN PRN (Reason: anxiety)
pantoprazole 40 mg Tablet,Delayed Release (Dr/Ec)
40 mg PO DAILY
ibuprofen 200 mg Tablet
400 mg PO BIDPRN PRN (Reason: mild pain)
albuterol sulfate 90 mcg/actuation Hfa Aerosol Inhaler
2 puff INHALATION R Q6HPRN PRN (Reason: sob,wheezing)
levothyroxine [Synthroid] 112 mcg Tablet
56 mcg PO WE
cholecalciferol (vitamin D3) [Vitamin D3] 25 mcg (1,000 unit) Tablet
25 mcg PO DAILY
PNV cmb#95-ferrous fumarate-FA [] 28 mg iron- 800 mcg Tablet
1 tab PO DAILY
magnesium oxide 400 mg magnesium Tablet
400 mg PO DAILY
melatonin 10 mg Tablet
10 mg PO HS
Discharge Orders:
Discharge Patient (As Directed); Ordered 08/07/24
Ordered By: Saroj Grubbs
Discharge Date and Time
Print Language: MONGOLIAN
[2024-08-07 15:44] VITALS: BP 123/94
== END 2024-08-07 16:11 | disposition home or self-care (01) ==
LOC: 4 EAST ACU 15:41
PROVIDERS: Clinical Nurse Specialist Family Health; ADMITTING PHYSICIAN Internal Medicine; ATTENDING PHYSICIAN Internal Medicine; CONSULT PHYSICIAN Psychiatry & Neurology Neurology; EMERGENCY PHYSICIAN Student in an Organized Health Care Education/Training Program; FAMILY PHYSICIAN Internal Medicine
DX: R20.2 Paresthesia of skin (principal); R20.0 Anesthesia of skin; J45.909 Unspecified asthma, uncomplicated; E78.00 Pure hypercholesterolemia, unspecified; G89.29 Other chronic pain; M54.9 Dorsalgia, unspecified; H53.8 Other visual disturbances; R29.818 Other symptoms and signs involving the nervous system; N18.9 Chronic kidney disease, unspecified; I12.9 Hypertensive chronic kidney disease with stage 1 through stage 4 chronic kidney disease, or unspecified chronic kidney disease; M54.16 Radiculopathy, lumbar region; I48.91 Unspecified atrial fibrillation; E03.9 Hypothyroidism, unspecified; M85.80 Other specified disorders of bone density and structure, unspecified site; G43.109 Migraine with aura, not intractable, without status migrainosus; E55.9 Vitamin D deficiency, unspecified; I71.40 Abdominal aortic aneurysm, without rupture, unspecified; K44.9 Diaphragmatic hernia without obstruction or gangrene; N39.3 Stress incontinence (female) (male); M06.9 Rheumatoid arthritis, unspecified; L80 Vitiligo; D64.9 Anemia, unspecified; N28.1 Cyst of kidney, acquired; M32.9 Systemic lupus erythematosus, unspecified; R91.1 Solitary pulmonary nodule; H40.9 Unspecified glaucoma; F41.9 Anxiety disorder, unspecified; F10.90 Alcohol use, unspecified, uncomplicated; K21.9 Gastro-esophageal reflux disease without esophagitis; G47.00 Insomnia, unspecified; M43.12 Spondylolisthesis, cervical region; R00.1 Bradycardia, unspecified; I67.81 Acute cerebrovascular insufficiency; M50.021 Cervical disc disorder at C4-C5 level with myelopathy; M48.02 Spinal stenosis, cervical region; B27.00 Gammaherpesviral mononucleosis without complication; Z79.82 Long term (current) use of aspirin; Z90.49 Acquired absence of other specified parts of digestive tract; Z82.3 Family history of stroke; Z88.1 Allergy status to other antibiotic agents; Z88.8 Allergy status to other drugs, medicaments and biological substances; Z79.890 Hormone replacement therapy; Z79.02 Long term (current) use of antithrombotics/antiplatelets; Z79.899 Other long term (current) drug therapy
CPT/HCPCS: 70496; 70498; 70551; 80048; 80053; 80061; 82607; 85025; 85610; 85730; 93005; 97116; 97161; 97165; 99285; G0378; Q9967

== ENCOUNTER 2024-10-14 14:36 | Emergency (ER) | payer MEDICARE, OTHER, SELFPAY ==
[2024-10-14 14:38] VITALS: BP 153/91
[2024-10-14 16:43] VITALS: BP 146/81
[2024-10-14 18:00] VITALS: BP 122/69
--- NOTE | 2024-10-14 18:26 | ED.GENMED ---
History of Present Illness
General
Chief Complaint: Eye Problems
Source: patient
Exam Limitations: none
Time Seen by Provider: 10/14/24 17:15
Nursing documentation reviewed up to this point in time: agreed with
History of Present Illness
History of Present Illness:
Patient presents to ED secondary to spontaneous bleeding noted in her right eye with foreign body sensation over the past 24 hours. Patient has had number of similar symptoms in the past, secondary to allergies associated with seasonal changes.
Denies fever or chills. Denies direct trauma. Denies blurred vision. Denies dizziness. Denies nausea or vomiting. Patient does not take any blood thinning medications.
Review of Systems
Review of Systems
Allergies reviewed?: Yes
All Other Systems: ROS reviewed and negative except as documented in HPI and ROS
Constitutional: Reports no symptoms; Denies fever
EENT: Reports other (eye redness)
Skin: Reports no symptoms
Neurological: Reports no symptoms
Phy Exam
Physical Exam
Physical Exam:
Physical Exam
General: no apparent distress, not acutely ill. afebrile
Head: nc/at. eomi. right eye: subconjunctival hemorrhage noted.
Neck: supple. normal range of motion
Neuro: alert and oriented x 3. no focal neurological deficits
Skin: no rash
Psychiatric: well kept. interactive and cooperative
Extremities: no edema. no calf tenderness.
Course
Vital Signs
Initial and Last Documented VS:
Initial Vital Signs
Temp Pulse Resp BP Pulse Ox
98.3 F 71 16 153/91 98
10/14/24 14:38 10/14/24 14:38 10/14/24 14:38 10/14/24 14:38 10/14/24 14:38
Last Documented Vital Signs
Temp Pulse Resp BP Pulse Ox
98.3 F 71 16 122/69 98
10/14/24 14:38 10/14/24 14:38 10/14/24 16:48 10/14/24 18:00 10/14/24 14:38
MDM/Problems Addressed
MDM/Problems Addressed:
History and exam consistent with subconjunctival hemorrhage. Otherwise patient is afebrile, hemodynamically stable, and nontoxic-appearing. No further workup indicated at this point. Patient will follow-up with her detective investigator for
reevaluation.
*Critical Care Note
Total Time (30-74mins, 75-104mins- exclusive of procedures): Not Applicable
ED Attending Note
-
Portions of this chart may have been created with voice recognition software.� Occasional wrong word or��sound alike� substitutions may have occurred due to the inherent limitations of voice recognition software.
Discharge Plan
Departure
Patient Disposition: Home (Routine Discharge)
Date of Disposition: 10/14/24
Time of Disposition: 18:26
Patient with high blood pressure during this ER visit?: Yes
Discharge Problem:
Subconjunctival hemorrhage
Instructions: Subconjunctival Hemorrhage
Prescriptions:
No Action
levothyroxine [Synthroid] 112 mcg Tablet
112 mcg PO SUMOTUTHFRSA
tizanidine 2 mg Tablet
2 mg PO DAILY
valacyclovir 1 gram Tablet
2,000 mg PO [id number] PRN (Reason: cold sores)
aspirin 81 mg Tablet,Delayed Release (Dr/Ec)
81 mg PO DAILY
lorazepam 0.5 mg Tablet
1 mg PO HS
lorazepam 0.5 mg Tablet
0.5 mg PO BIDPRN PRN (Reason: anxiety)
pantoprazole 40 mg Tablet,Delayed Release (Dr/Ec)
40 mg PO DAILY
ibuprofen 200 mg Tablet
400 mg PO BIDPRN PRN (Reason: mild pain)
albuterol sulfate 90 mcg/actuation Hfa Aerosol Inhaler
2 puff INHALATION R Q6HPRN PRN (Reason: sob,wheezing)
levothyroxine [Synthroid] 112 mcg Tablet
56 mcg PO WE
cholecalciferol (vitamin D3) [Vitamin D3] 25 mcg (1,000 unit) Tablet
25 mcg PO DAILY
PNV b#95-ferrous fumarate-FA [] 28 mg iron- 800 mcg Tablet
1 tab PO DAILY
magnesium oxide 400 mg magnesium Tablet
400 mg PO DAILY
melatonin 10 mg Tablet
10 mg PO HS
thiamine mononitrate (vit B1) 100 mg Tablet
100 mg PO DAILY Qty: 30 0RF
Referrals:
UNKNOWN - PT DOES,NOT KNOW [Unknown Provider]
Activity Restrictions/Additional Instructions:
As discussed, please follow-up with your detective investigator for further evaluation and treatment.
Interventions
Interventions:
*Risk Screen - Suicide Last Done: 10/14/24 14:38
*Neglect/Abuse Screening Last Done: 10/14/24 14:38
*Nursing Disposition Last Done: 10/14/24 18:30
Discharge Date and Time
Discharge Date/Time: 10/14/24 18:31
Print Language: VIET[place]ESE
== END 2024-10-14 18:31 | disposition home or self-care (01) ==
LOC: EMR 14:36
PROVIDERS: EMERGENCY PHYSICIAN Emergency Medicine; FAMILY PHYSICIAN Internal Medicine
DX: H11.31 Conjunctival hemorrhage, right eye (principal)
CPT/HCPCS: 99282